=== PATIENT | male | born 1965 | race Caucasian/White ===

== ENCOUNTER 2017-12-01 01:26 | Emergency (ER) | payer OTHER ==
[~2017-12-01] VITALS: Ht 177.8 cm; Wt 85.3 kg
[~2017-12-01 01:26] MED LIST: CEFU1TAB43 PO; LANSO15 PO; PERC5TAB12 PO; TAMS0.4C67 PO
[2017-12-01 01:32] VITALS: BP 161/97; PULSE 83; RESP 18; TEMP 98; O2SAT 96
== END 2017-12-01 02:40 | disposition left against medical advice (07) ==
LOC: PHED 01:26
DX: K08.89 Other specified disorders of teeth and supporting structures (principal); Z53.21 Procedure and treatment not carried out due to patient leaving prior to being seen by health care provider
CPT/HCPCS: 99281